=== PATIENT | male | born 1965 | race Caucasian/White ===

== ENCOUNTER → 2024-04-21 | Outpatient (CLI) | payer OTHER ==
[~2024-04-21] MED LIST: ALBU90OI INH; ASCO500 PO; ASPI81EC PO; CHOL10002 PO; CODGUAEL PO; DOCU100; FISH1000 PO; GEMF600 PO; GINKGO BILOBA PO; Garlic Oil1000 MG PO; HYDACE25S PR; IRON325 MG PO; LEVSOD50 PO; OMEP20ER PO; PETROLATUM TOP; POLYOX WSR-3011 GM PO; PROBIOTIC1 EAC1 PO; Prilosec20 MG PO; UBID100 PO; WITHAZ50T TOP
[2024-04-21 20:54] LABS: Protein, Urine Quantitative 24.2 mg/dL (0.0-11.9)
== END | disposition home or self-care (01) ==
LOC: LAB 12:45 → LAB SHORT 12:45
PROVIDERS: Internal Medicine Nephrology
DX: N18.30 Chronic kidney disease, stage 3 unspecified (principal); D63.1 Anemia in chronic kidney disease; N25.81 Secondary hyperparathyroidism of renal origin; E55.9 Vitamin D deficiency, unspecified; E78.00 Pure hypercholesterolemia, unspecified; R94.5 Abnormal results of liver function studies; R76.9 Abnormal immunological finding in serum, unspecified; R94.6 Abnormal results of thyroid function studies
CPT/HCPCS: 82043; 82570; 84156